=== PATIENT | female | born 1975 | race Caucasian/White ===

== ENCOUNTER 2023-03-16 07:18 | Observation (INO) | payer OTHER ==
[~2023-03-16] VITALS: Ht 157.5 cm; Wt 71.7 kg
[2023-03-16] VITALS (7 sets, daily range): BP systolic 105–114; BP diastolic 62–75; TEMP 97.7–98.8; O2SAT 91–97
[~2023-03-16 07:18] MED LIST: ADVA115A; ALEV220T22 PO; CETI-24 PO; COLA100C5 PO; ERGO500029 PO; GABA-284 PO; HEPARIN SOD (PORCINE) 5000UNITS/ML 1ML VIAL/SYRINGE SQ ONE; IRON65TA2 PO; MONT10TA97 PO; PREV30TA3 PO; PROA1AER2 INH; VITA-32 PO; ceFAZolin SOD 2 GM in IV 1 EA IV ONE
[2023-03-16] MEDS ORDERED: LR 1,000 ML IV SCH ×2 (08:30→14:35)
[2023-03-16] MEDS ORDERED: fentaNYL 250 MCG/5 ML INJECTION As Ordered ONE (08:49)
[2023-03-16] MEDS ORDERED: LIDOCAINE 2% 100MG/5ML SDV (FOR ANES.) As Ordered ONE (08:49)
[2023-03-16] MEDS ORDERED: ROCURONIUM BROMIDE 50MG/5ML VIAL As Ordered ONE ×3 (08:49→14:09)
[2023-03-16] MEDS ORDERED: ONDANSETRON 4MG 2ML VIAL As Ordered ONE (08:49)
[2023-03-16] MEDS ORDERED: MIDAZOLAM INJ 2MG/2ML VIAL As Ordered ONE (08:49)
[2023-03-16] MEDS ORDERED: propofoL 200 MG/20 ML VIAL As Ordered ONE (08:49)
[2023-03-16] MEDS ORDERED: SUGAMMADEX SODIUM 500 MG/5 ML VIAL (BRIDION) As Ordered ONE (08:51)
[2023-03-16] MEDS ORDERED: dexmedeTOMIDine (4MCG/ML)200MCG/50ML BTL (PRECEDEX) As Ordered ONE (08:51)
[2023-03-16] MEDS ORDERED: ACETAMINOPHEN 1000MG 100ML IV BAG As Ordered ONE (08:51)
[2023-03-16] MEDS ORDERED: SEVOFLURANE INHAL SOLN 250 ML BTL As Ordered ONE (08:55)
[2023-03-16] MEDS ORDERED: LIDOCAINE 1% MDV 20ML VIAL As Ordered ONE (09:58)
[2023-03-16] MEDS ORDERED: EPINEPHrine INJ 1 MG/ML 1ML AMP As Ordered ONE (09:59)
[2023-03-16] MEDS ORDERED: GENTAMICIN SULF 80MG/2ML VIAL As Ordered ONE (09:59)
[2023-03-16] MEDS ORDERED: PHENYLephrine 500MCG 5ML (100MCG/ML) SYRINGE As Ordered ONE (10:54)
[2023-03-16] MEDS ORDERED: ePHEDrine SULFATE 25 MG/5 ML(5MG/ML) SYRINGE As Ordered ONE ×2 (10:54→13:27)
[2023-03-16] MEDS ORDERED: GLYCOPYRROLATE INJ 0.2 MG/ML 2 ML VIAL As Ordered ONE (10:56)
[2023-03-16] MEDS ORDERED: HYDROmorphone HCL 2MG/ML 1ML VIAL As Ordered ONE (13:00)
[2023-03-16] MEDS ORDERED: ceFAZolin 2 GM/D5W 50 ML IV BAG As Ordered ONE (14:12)
[2023-03-16] MEDS ORDERED: oxyCODONE 5MG TAB PO PRN (14:35)
[2023-03-16] MEDS ORDERED: HYDROMORPHONE HCL 0.5 MG/ 0.5 ML SYRINGE IV PRN (14:35)
[2023-03-16] MEDS ORDERED: fentaNYL 100 MCG/2 ML INJECTION IV PRN (14:35)
[2023-03-16] MEDS ORDERED: ONDANSETRON 4MG 2ML VIAL IV PRN ×2 (14:35→14:55)
[2023-03-16] MEDS ORDERED: ACETAMINOPHEN TAB 650MG DOSE (2X325MG) PO PRN (14:55)
[2023-03-16] MEDS ORDERED: MED REC IN PROGRESS XX SCH (15:10)
[2023-03-16] MEDS: LR 1,000 ML IV SCH (17:02)
[2023-03-16] MEDS ORDERED: DICL100G10 TOP (17:41)
[2023-03-16] MEDS ORDERED: C-101TAB PO (17:47)
[2023-03-16] MEDS ORDERED: ERGO500029 PO (17:49)
[2023-03-16] MEDS ORDERED: HOME MED LIST COMPLETE! XX SCH (17:50)
[2023-03-16] MEDS: ceFAZolin SOD 1 GM in D5W MINI-BAG PLUS 50 ML IV SCH (18:29)
[2023-03-16] MEDS: traMADol 50 MG TAB PO PRN (18:32)
[2023-03-16] MEDS: PERCOCET 5MG/325MG TAB PO PRN (20:04)
[2023-03-16] MEDS ORDERED: VITAMIN D 50,000 UNITS CAPSULE (ERGOCALCIFEROL 1.25MG) PO ONE (21:00)
[2023-03-17 01:00] VITALS: BP 104/60; TEMP 98.2; O2SAT 96
[2023-03-17] MEDS: PERCOCET 5MG/325MG TAB PO PRN (01:06)
[2023-03-17] MEDS: ceFAZolin SOD 1 GM in D5W MINI-BAG PLUS 50 ML IV SCH (03:47)
[2023-03-17 05:00] VITALS: BP 103/59; TEMP 98.1; O2SAT 94
[2023-03-17] MEDS: LR 1,000 ML IV SCH (05:25)
[2023-03-17] MEDS ORDERED: CETIRIZINE (ZyrTEC) 10 MG TAB PO SCH (09:00)
[2023-03-17] MEDS ORDERED: TRAM50TA2 PO (09:11)
[2023-03-17] MEDS: traMADol 50 MG TAB PO PRN (09:19)
[2023-03-17 09:48] VITALS: BP 118/71; TEMP 98.8; O2SAT 100
== END 2023-03-17 11:30 | disposition home or self-care (01) ==
LOC: M SDC 07:18 → M RR INP 07:19 → M MS5PR 15:40
PROVIDERS: ADMIT Plastic Surgery Surgery of the Hand; ATTEND Plastic Surgery Surgery of the Hand
DX: N62 Hypertrophy of breast (principal); M54.2 Cervicalgia; M95.4 Acquired deformity of chest and rib; K21.9 Gastro-esophageal reflux disease without esophagitis; D64.9 Anemia, unspecified; J45.909 Unspecified asthma, uncomplicated; G47.33 Obstructive sleep apnea (adult) (pediatric); Z79.51 Long term (current) use of inhaled steroids; Z79.899 Other long term (current) drug therapy; Z91.040 Latex allergy status; Z88.8 Allergy status to other drugs, medicaments and biological substances; F17.218 Nicotine dependence, cigarettes, with other nicotine-induced disorders; Z98.84 Bariatric surgery status
CPT/HCPCS: 19318; 81025; 88305; 96365; 96366; 96375; C9290; J0131; J0665; J0690; J1100; J1170; J1580; J2250; J2371; J2405; J3010